=== PATIENT | female | born 1990 | race Caucasian/White ===

== ENCOUNTER 2016-09-05 16:30 | Emergency (ER) | payer BC ==
[~2016-09-05] VITALS: Ht 165.1 cm; Wt 92.9 kg
[2016-09-05 16:36] VITALS: TEMP 36.9; Ht 165.1 cm; Wt 92.9 kg
[2016-09-05] MEDS ORDERED: LTHSR/300 PO (17:09)
[2016-09-05] MEDS ORDERED: GABA-113 PO (17:09)
[2016-09-05] MEDS ORDERED: QUET1TAB30 PO (17:09)
[2016-09-05] MEDS ORDERED: BCPILLS PO (17:09)
[2016-09-05 17:20] LABS: URINE APPEARANCE CLOUDY (CLEAR); URINE COLOR DK YELLOW; URINE EPITHELIAL CELL AUTO >30 /lpf (0-5); URINE NITRITE NEG (NEG); URINE SPECIFIC GRAVITY 1.034 (1.000-1.030); UROBILINOGEN NEG (NEG)
[2016-09-05 17:28] LABS: BASO % 0.5 %; BASO ABS # 0.05 K/uL (0-0.2); COMPLETE YES; EOS % 2.8 %; HEMATOCRIT 43.5 % (37-47); IG% 0.2 %; LYMPH % 30.6 %; LYMPH ABS # 3.08 K/uL (1.2-3.4); MEAN CELL VOLUME 89.5 fL (80-100); MEAN CORPUSCULAR HEMOGLOBIN 28.8 pg (25-34); MEAN CORPUSCULAR HGB CONC 32.2 g/dl (32-36); MEAN PLATELET VOLUME 10.5 fL (7.4-10.4); MONO % 7.6 %; NEUT % 58.3 %; PLATELET COUNT 309 K/uL (130-400); RED BLOOD COUNT 4.86 M/uL (4.2-5.4); WHITE BLOOD COUNT 10.08 K/uL (4.8-10.8)
[2016-09-05 17:28] LABS: MANUAL MICROSCOPIC REQUIRED? NO; REVIEW REQ? YES; URINE BILIRUBIN NEG (NEG)
[2016-09-05 17:52] LABS: BENZODIAZEPINE, URINE NEG (NEG); COCAINE,URINE NEG (NEG); PHENCYCLIDINE, URINE NEG (NEG)
[2016-09-05 17:56] LABS: ALT/SGPT 21 U/L (12-78); AST/SGOT 14 U/L (15-37); BLOOD UREA NITROGEN 9 mg/dl (7-18); BUN/CREATININE RATIO 8.3 (10-20); CALCIUM 9.3 mg/dl (8.5-10.1); CARBON DIOXIDE 27 mmol/L (21-32); CHLORIDE 109 mmol/L (98-107); GLUCOSE 92 mg/dl (70-99); POTASSIUM 3.6 mmol/L (3.5-5.1); SODIUM 144 mmol/L (136-145)
[2016-09-05 18:06] LABS: ALKALINE PHOSPHATASE 74 U/L (45-117); THYROID STIMULATING HORMONE 0.746 uIu/ml (0.300-4.500)
[2016-09-05] MEDS ORDERED: NICOTINE POLACRILEX 2 MG GUM ONE (18:07)
--- NOTE | 2016-09-05 18:54 | EMERGENCY ROOM VISIT NOTE ---
History Report prepared by Mine: Alla Chun Under the Supervision of: Dr. Ever Solomon D.O. First contact with patient: 16:40 Chief Complaint: MENTAL HEALTH EVALUATION Stated Complaint: NEEDS PSYCH EVAL History of Present Illness The patient is a 25 year old female who presents to the Emergency Room with complaints of persistent suicidal thoughts starting 4 days ago. The patient has a history of bipolar disorder and opiate, alcohol, and cocaine abuse. She went to rehab last year and is currently in recovery. She is currently living with her parents, but has been planning on moving into a penitentiary. She reports that she had been disassociating lately. When faced with moving into the penitentiary, she states that she "came back to reality" and started having these suicidal thoughts. She had thought about overdosing. She also has been having hallucinations and paranoia. She has started cutting herself using a razor blade on her arms and legs. She has a history of cutting since she was 12. Her therapist has been checking on her everyday. Today, her therapist called her psychiatrist about the recurrent suicidal thoughts and recommended she present to the ED. She is currently not having any hallucinations. She is currently on Seroquel and lithium. She was prescribed Geodon, but has not started taking it yet. She admits to tobacco use. She has a history of asthma. She denies any previous surgeries. She currently has her menstrual period. Her tetanus is up to date. Source of History: patient Onset: 4 days ago Position: other (mental health) Quality: other (suicidal thoughts) Timing: other (persistent) Note: Pt reports hallucinations, paranoia. Review of Systems See HPI for pertinent positives & negatives. A total of 10 systems reviewed and were otherwise negative. Past Medical & Surgical Medical Problems: (1) Bipolar disorder Family History No pertinent family history stated. Social History Smoking Status: Current Every Day Smoker Housing Status: lives with family Current/Historical Medications Scheduled Control Pills ( Control Pills), 1 TAB PO DAILY Gabapentin (Neurontin), 300 MG PO AMPM Moville Carbonate (Moville Carbonate), 300 MG PO QPM Quetiapine Fumarate (Seroquel), 25 MG PO HS Allergies Coded Allergies: Amoxicillin (Unverified Adverse Reaction, Intermediate, RASH, 09/05/16) Penicillins (Unverified Adverse Reaction, Intermediate, RASH, 09/05/16) Physical Exam Vital Signs Date Time Temp Pulse Resp B/P (MAP) Pulse Ox O2 Delivery O2 Flow Rate FiO2 09/05/16 21:11 76 18 152/80 97 Room Air 09/05/16 19:10 78 18 152/88 98 Room Air 09/05/16 18:11 90 16 144/75 100 Room Air 09/05/16 16:36 36.9 94 18 144/90 100 Room Air Physical Exam GENERAL: Patient is awake, alert, and in no acute distress. Patient is resting comfortably and showing no signs of anxiety EYES: The conjunctivae are clear. The pupils are round and reactive. EARS, NOSE, MOUTH AND THROAT: The nose is without any evidence of any deformity. Mucous membranes are moist tongue is midline NECK: The neck is nontender and supple. RESPIRATORY: Normal respiratory effort is noted there is no evidence of wheezing rhonchi or rales CARDIOVASCULAR: Regular rate and rhythm noted there no murmurs rubs or gallops normal S1 normal S2 GASTROINTESTINAL: The abdomen is soft. Bowel sounds are present in all quadrants. Abdomen is nontender MUSCULOSKELETAL/EXTREMITIES: There is no evidence of gross deformity full range of motion is noted in the hips and shoulders SKIN: There are multiple linear lacerations over the left upper extremity and left thigh consistent with recent cutting, no active bleeding was noted. NEUROLOGIC: Patient is awake alert and oriented x3 strength is symmetric patellar reflexes are 2+ bilaterally PSYCH: Patient is awake and alert, currently admits to SI which is vague. Medical Decision & Procedures Laboratory Results 09/05/16 17:16 Red Blood Count 4.86, Mean Corpuscular Volume 89.5, Mean Corpuscular Hemoglobin 28.8, Mean Corpuscular Hemoglobin Concent 32.2, Mean Platelet Volume 10.5, Neutrophils (%) (Auto) 58.3, Lymphocytes (%) (Auto) 30.6, Monocytes (%) (Auto) 7.6, Eosinophils (%) (Auto) 2.8, Basophils (%) (Auto) 0.5, Neutrophils # (Auto) 5.88, Lymphocytes # (Auto) 3.08, Monocytes # (Auto) 0.77, Eosinophils # (Auto) 0.28, Basophils # (Auto) 0.05 09/05/16 17:16 Test 09/05/16 17:00 09/05/16 17:16 Urine Color DK YELLOW Urine Appearance CLOUDY (CLEAR) Urine pH 6.0 (4.5-7.5) Urine Specific [place] 1.034 (1.000-1.030) Urine Protein NEG (NEG) Urine Glucose (UA) NEG (NEG) Urine Ketones TRACE (NEG) Urine Occult Blood NEG (NEG) Urine Nitrite NEG (NEG) Urine Bilirubin NEG (NEG) Urine Urobilinogen NEG (NEG) Urine Leukocyte Esterase NEG (NEG) Urine WBC (Auto) 1-5 /hpf (0-5) Urine RBC (Auto) 0-4 /hpf (0-4) Urine Hyaline Casts (Auto) 5-10 /lpf (0-5) Urine Epithelial Cells (Auto) >30 /lpf (0-5) Urine Bacteria (Auto) NEG (NEG) Urine Crystals CALCIUM OXALATE (NONE Urine Test NEG (NEG) Urine Opiates Screen NEG (NEG) Urine Methadone, Qualitative NEG (NEG) Urine Barbiturates NEG (NEG) Urine Phencyclidine (PCP) Level NEG (NEG) Ur Amphetamine/Methamphetamine NEG (NEG) MDMA (Ecstasy) Screen POS (NEG) Urine Benzodiazepines Screen NEG (NEG) Urine Cocaine Metabolite NEG (NEG) Urine Marijuana (THC) NEG (NEG) White Blood Count 10.08 K/uL (4.8-10.8) Red Blood Count 4.86 M/uL (4.2-5.4) Hemoglobin 14.0 g/dL (12.0-16.0) Hematocrit 43.5 % (37-47) Mean Corpuscular Volume 89.5 fL (80-100) Mean Corpuscular Hemoglobin 28.8 pg (25-34) Mean Corpuscular Hemoglobin Concent 32.2 g/dl (32-36) Platelet Count 309 K/uL (130-400) Mean Platelet Volume 10.5 fL (7.4-10.4) Neutrophils (%) (Auto) 58.3 % Lymphocytes (%) (Auto) 30.6 % Monocytes (%) (Auto) 7.6 % Eosinophils (%) (Auto) 2.8 % Basophils (%) (Auto) 0.5 % Neutrophils # (Auto) 5.88 K/uL (1.4-6.5) Lymphocytes # (Auto) 3.08 K/uL (1.2-3.4) Monocytes # (Auto) 0.77 K/uL (0.11-0.59) Eosinophils # (Auto) 0.28 K/uL (0-0.5) Basophils # (Auto) 0.05 K/uL (0-0.2) RDW Standard Deviation 41.4 fL (36.4-46.3) RDW Coefficient of Variation 12.7 % (11.5-14.5) Immature Granulocyte % (Auto) 0.2 % Immature Granulocyte # (Auto) 0.02 K/uL (0.00-0.02) Anion Gap 8.0 mmol/L (3-11) Est Creatinine Clear Calc Drug Dose 88.1 ml/min Estimated GFR () 80.8 Estimated GFR (Non- 69.7 BUN/Creatinine Ratio 8.3 (10-20) Calcium Level 9.3 mg/dl (8.5-10.1) Total Bilirubin 0.1 mg/dl (0.2-1) Direct Bilirubin < 0.1 mg/dl (0-0.2) Aspartate Amino Transf (AST/SGOT) 14 U/L (15-37) Alanine Aminotransferase (ALT/SGPT) 21 U/L (12-78) Alkaline Phosphatase 74 U/L (45-117) Total Protein 7.3 gm/dl (6.4-8.2) Albumin 3.5 gm/dl (3.4-5.0) Thyroid Stimulating Hormone (TSH) 0.746 uIu/ml (0.300-4.500) Moville Level < 0.2 mMOL/L (0.6-1.2) Ethyl Alcohol mg/dL < 3.0 mg/dl (0-3) Laboratory results per my review. Medications Administered Medications (Trade) Dose Ordered Sig/Cricket Route Start Time Stop Time Status Last Admin Dose Admin Nicotine Polacrilex (Nicorette 2MG Gum) 1 piece STK-MED ONCE .ROUTE 09/05/16 18:07 09/05/16 18:08 DC 09/05/16 18:11 1 PIECE Ibuprofen (Motrin Tab) 600 mg NOW STAT PO 09/05/16 21:00 09/05/16 21:01 DC 09/05/16 21:06 600 MG ED Course 1643: The patient was evaluated in room A3. A complete history and physical examination were performed. 1806: Nicotine Polacrilex 1 piece PO. 1812: I reevaluated the patient. She is doing well. 2054: The patient has been accepted to the [facility]. 2100: Ibuprofen 600 mg PO. Medical Decision Prior records/ancillary studies reviewed. Triage Nursing notes reviewed. The patient's history was concerning for possible psychiatric disturbance. Differential diagnosis: Etiologies such as mood disorder, infection, hypoglycemia, electrolyte abnormalities, cardiac sources, intracerebral event, toxicologic, neurologic, as well as others were entertained. The patient is a 25-year-old female who presented to emergency department for an evaluation of mental health problems. The patient is had worsening symptoms over the last few days. She was medically cleared in the emergency department. She was evaluated by the mental embedded case manager. She was felt to be a good candidate for inpatient admission and was referred to the [facility]. She was accepted for inpatient management. Medication Reconcilliation Current Medication List: was personally reviewed by me Blood Pressure Screening Patient's blood pressure: Elevated blood pressure Blood pressure disposition: Elevated BP felt to be situational Impression Primary Impression: Anxiety Additional Impressions: Depression Suicidal ideation Scribe Attestation The scribe's documentation has been prepared under my direction and personally reviewed by me in its entirety. I confirm that the note above accurately reflects all work, treatment, procedures, and medical decision making performed by me. Departure Information Dispostion Mental Health Acute Care Referrals Senia Nielsen M.D. (PCP) Patient Instructions [facility] Problem Qualifiers Additional Impressions: Depression Depression Type: unspecified Qualified Codes: F32.9 - Major depressive disorder, single episode, unspecified
[2016-09-05] MEDS ORDERED: IBUPROFEN 600 MG TAB PO STA (21:00)
[2016-09-05 21:11] VITALS: BP 152/80; PULSE 76; O2SAT 97
== END 2016-09-05 21:13 ==
LOC: C.EDB 16:31 → C.EDA 21:13
DX: F41.9 Anxiety disorder, unspecified (principal); F32.9 Major depressive disorder, single episode, unspecified; R45.851 Suicidal ideations; F31.9 Bipolar disorder, unspecified; F17.200 Nicotine dependence, unspecified, uncomplicated

== ENCOUNTER → 2016-11-12 | Outpatient (CLI) | payer BC ==
[~2016-11-12] MED LIST: BCPILLS PO; GABA-113 PO; LTHSR/300 PO; QUET1TAB30 PO
--- NOTE | 2016-11-12 14:47 | DIAGNOSTIC IMAGING REPORT ---
APPENDIX ULTRASOUND HISTORY: Right lower quadrant abdominal pain. COMPARISON: None. FINDINGS: Transabdominal scanning of the right lower quadrant was performed. The appendix was not identified. There are no fluid collections or masses within the right lower quadrant. IMPRESSION: The appendix was not identified. Electronically signed by: Mekhi Baird M.D. 11/12/2016 2:45 PM Dictated Date/Time: 11/12/2016 2:45 PM
--- NOTE | 2016-11-12 14:55 | DIAGNOSTIC IMAGING REPORT ---
PELVIC ULTRASOUND, TRANSABDOMINAL AND TRANSVAGINAL HISTORY: PELVIC PAIN, R/O OVARIAN TORSION COMPARISON: None. FINDINGS: Uterus: Unremarkable. Endometrial stripe: 2 mm in thickness. Right ovary: Normal in size and demonstrates normal color flow. A 2.4 cm septated cyst versus 2 adjacent small cysts. Left ovary: Normal in size and demonstrates normal color flow. Miscellaneous:No pelvic free fluid. IMPRESSION: No significant abnormality identified within the pelvis. Electronically signed by: Mekhi Baird M.D. 11/12/2016 2:53 PM Dictated Date/Time: 11/12/2016 2:52 PM
== END | disposition home or self-care (01) ==
LOC: C.ULTRBC 13:18
PROVIDERS: ATTEND Family Medicine
DX: R10.31 Right lower quadrant pain (principal); R10.2 Pelvic and perineal pain; N91.2 Amenorrhea, unspecified